=== PATIENT | male | born 1995 | race American Indian/Alaskan Native ===

== ENCOUNTER 2016-12-16 02:28 | Emergency (ER) | payer SELFPAY ==
[2016-12-16] MEDS ORDERED: NACL 0.9% 1000 ML 1,000 ML IV ONE (02:44)
[2016-12-16 03:11] LABS: Basophils % (Auto) 1.1 % (0.0-1.8); Eosinophils % (Auto) 3.2 % (0.0-4.3); Hematocrit 41.1 % (35.5-45.6); Hemoglobin 13.5 gm/dl (11.8-15.2); Mean Corpuscular HGB Conc 33 % (32-34); Mean Corpuscular Hemoglobin 31 pg (28-32); Mean Corpuscular Volume 94 fl (84-94); Platelet Count 270 K/mm3 (140-440); Red Blood Count 4.39 M/mm3 (3.65-5.03); Red Cell Distribution Width 13.4 % (13.2-15.2); White Blood Count 4.7 K/mm3 (4.5-11.0)
[2016-12-16 03:20] LABS: INR 1.03 (0.87-1.13); Partial Thromboplastin Time 32.6 Sec. (24.2-36.6)
[2016-12-16 03:27] LABS: Alanine Aminotransferase 13 units/L (7-56); Albumin 4.6 g/dL (3.9-5); Albumin/Globulin Ratio 1.6 %; Alkaline Phosphatase 65 units/L (35-129); Anion Gap 16 mmol/L; Bilirubin,Total 0.5 mg/dL (0.1-1.2); Blood Urea Nitrogen 12 mg/dL (9-20); Calcium 9.2 mg/dL (8.4-10.2); Carbon Dioxide 30 mmol/L (22-30); Glucose 72 mg/dL (75-100); Lipase 20 units/L (13-60); Potassium 4.7 mmol/L (3.6-5.0); Sodium 141 mmol/L (137-145); Total Protein 7.4 g/dL (6.3-8.2)
[2016-12-16] MEDS ORDERED: PERCOCET 5/325 PO ONE (08:11)
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
--- NOTE | 2016-12-16 09:04 | XRay Report ---
Lumbar spine 3 views: History: Back pain. Findings: Mild scoliosis of lumbar spine with convexity to the left. Normal height of vertebral bodies and intervertebral disc. Normal articular surfaces. No fracture. No soft tissue calcification. Impression: No bony or articular abnormality.
[2016-12-16 10:19] VITALS: BP 118/69
== END 2016-12-16 10:25 | disposition home or self-care (01) ==
LOC: ED 02:28
DX: K62.5 Hemorrhage of anus and rectum (principal); M54.5 Low back pain
CPT/HCPCS: 36415; 72100; 80053; 83690; 85025; 85610; 85730; 86850; 86900; 86901; 93005; 93010; 99285

== ENCOUNTER 2016-12-22 13:33 | Emergency (ER) | payer SELFPAY ==
[2016-12-22 16:11] LABS: Bilirubin,Urine NEG (Negative); Blood,Urine SM (Negative); Ketones,Urine 20 mg/dL (Negative); Leukocyte Esterase,Urine NEG (Negative); Mucus,Urine 3+ /HPF; Nitrite,Urine NEG (Negative); Urobilinogen,Urine < 2.0 mg/dL (<2.0)
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
[2016-12-22 19:28] VITALS: BP 101/68
== END 2016-12-22 19:29 | disposition home or self-care (01) ==
LOC: ED 13:33
DX: M54.5 Low back pain (principal); G89.29 Other chronic pain; F17.200 Nicotine dependence, unspecified, uncomplicated
CPT/HCPCS: 81001; 99282

== ENCOUNTER 2017-01-19 19:50 | Emergency (ER) | payer SELFPAY ==
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
[2017-01-20] MEDS ORDERED: TORADOL IM ONE (01:06)
[2017-01-20 02:38] VITALS: BP 110/60
== END 2017-01-20 02:39 | disposition home or self-care (01) ==
LOC: ED 19:50
DX: M25.562 Pain in left knee (principal); G89.29 Other chronic pain; M79.1 Myalgia; F17.200 Nicotine dependence, unspecified, uncomplicated
CPT/HCPCS: 96372; 99282; J1885

== ENCOUNTER 2017-11-09 17:38 | Emergency (ER) | payer OTHER ==
[2017-11-09 18:41] LABS: Eosinophils # (Auto) 0.1 K/mm3 (0.0-0.4); Eosinophils % (Auto) 1.7 % (0.0-4.3); Hemoglobin 15.5 gm/dl (11.8-15.2); Lymphocytes # (Auto) 1.1 K/mm3 (1.2-5.4); Lymphocytes % (Auto) 32.3 % (13.4-35.0); Mean Corpuscular HGB Conc 34 % (32-34); Mean Corpuscular Hemoglobin 32 pg (28-32); Mean Corpuscular Volume 95 fl (84-94); Monocytes # (Auto) 0.3 K/mm3 (0.0-0.8); Monocytes % (Auto) 9.5 % (0.0-7.3); Platelet Count 308 K/mm3 (140-440); Red Blood Count 4.84 M/mm3 (3.65-5.03); Red Cell Distribution Width 13.8 % (13.2-15.2)
[2017-11-09 18:41] LABS: Bilirubin,Urine NEG (Negative); Blood,Urine NEG (Negative); Color,Urine Yellow (Yellow); Mucus,Urine FEW /HPF; Nitrite,Urine NEG (Negative); Protein,Urine <15 mg/dL mg/dL (Negative); Urobilinogen,Urine < 2.0 mg/dL (<2.0)
[2017-11-09 18:54] LABS: Alanine Aminotransferase 32 units/L (7-56); Albumin 5.1 g/dL (3.9-5); BUN/Creatinine Ratio 20; Blood Urea Nitrogen 18 mg/dL (9-20); Calcium 10.2 mg/dL (8.4-10.2); Hemolysis Index 4
[2017-11-09 23:53] VITALS: BP 117/47
[2017-11-10] MEDS ORDERED: TORADOL IM ONE (10:46)
[2017-11-10] MEDS ORDERED: ZOFRAN ODT PO ONE (10:46)
[2017-11-10] MEDS ORDERED: ULTRAM PO ONE (10:46)
[2017-11-10] MEDS ORDERED: PEPCID PO ONE (10:47)
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
== END 2017-11-10 12:30 | disposition home or self-care (01) ==
LOC: ED 17:38
DX: K29.70 Gastritis, unspecified, without bleeding (principal); S02.5XXA Fracture of tooth (traumatic), initial encounter for closed fracture; F17.200 Nicotine dependence, unspecified, uncomplicated; X58.XXXA Exposure to other specified factors, initial encounter; Y93.89 Activity, other specified; Y99.8 Other external cause status; Y92.89 Other specified places as the place of occurrence of the external cause
CPT/HCPCS: 36415; 80053; 81001; 85025; 99283; Q0162

== ENCOUNTER 2020-10-16 22:30 | Emergency (ER) | payer MEDICAID ==
[2020-10-17 01:22] VITALS: BP 105/67
[2020-10-17] MEDS ORDERED: predniSONE 50 MG TAB PO ONE (03:30)
[2020-10-17] MEDS ORDERED: IBUPROFEN 600 MG TAB PO ONE (03:30)
[2020-10-17] MEDS ORDERED: CYCLOBENZAPRINE 10 MG TAB PO ONE (03:30)
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
== END 2020-10-17 04:50 | disposition home or self-care (01) ==
LOC: ED 22:30
DX: M62.830 Muscle spasm of back (principal); G89.29 Other chronic pain; F17.200 Nicotine dependence, unspecified, uncomplicated; F12.10 Cannabis abuse, uncomplicated; Z79.899 Other long term (current) drug therapy
CPT/HCPCS: 99282; J7512